=== PATIENT | male | born 1980 | race American Indian/Alaskan Native ===

== ENCOUNTER 2024-10-29 21:35 | Emergency (ER) | payer BC, SELFPAY ==
[2024-10-29 21:35] VITALS: BMI 31.6
[2024-10-29 21:54] VITALS: BP 157/97; PULSE 85; RESP 18; TEMP 37.2; O2SAT 97
[2024-10-29] MEDS: AMOXICILLIN/POT CLAV 875 TABLET 1 TAB PO (22:16)
[2024-10-29] MEDS: HYDROcodone/APAP 5/325 TABLET 1 TAB PO (22:16)
--- NOTE | 2024-10-29 23:48 | PD.EDEAR ---
ED Ear RME/HPI General Chief complaint: Ear Stated complaint: LEFT EAR PAIN, WITH BLOODY DISCHARGE Time Seen by Provider: 10/29/24 22:10 Arrival date/time: 10/29/24 21:35 44M with no significant PMH Presents to ED with several days of facial pain, sinus pressure, and L ear pain with some bloody discharge. Some reduced L hearing. Limitations: no limitations Related Data Previous Rx's ?Medication ?Instructions ?Recorded amoxicillin 875 mg-potassium 1 tab PO BID 7 days #14 tabs 10/29/24 clavulanate 125 mg tablet ofloxacin 0.3 % ear drops 5 drp otic (ear) BID 7 days #10 mL 10/29/24 Allergies Allergy/AdvReac Type Severity Reaction Status Date / Time No Known Allergies Allergy Verified 10/29/24 21:37 Review of Systems ENT Ears, Nose, Mouth, and Throat: Reports as per HPI, Reports otalgia, Reports facial pain and Reports sinus pressure Past Medical History Social History SMOKING STATUS: Never smoker ED Exam General Limitations: Present no limitations General appearance: Present alert and in no apparent distress Head Head exam: Present atraumatic Eye Eye exam: Present normal appearance, PERRL and EOMI ENT ENT exam: Present normal oropharynx and mucous membranes moist Expanded ENT Exam TM/Canal exam: Left TM: bulging, effusion and perforation Nose exam: Present sinus tenderness Neck Neck exam: Present normal inspection, full ROM and trachea midline Chest Chest inspection: Present normal inspection and symmetric chest wall rise Respiratory Respiratory exam: Present normal lung sounds bilaterally Cardiovascular Cardiovascular exam: Present regular rate, normal rhythm and normal heart sounds Abdominal Exam Abdominal exam: Present soft and normal bowel sounds Extremities Exam Extremities exam: Present normal inspection and full ROM Back Exam Back exam: Present normal inspection and full ROM Neurological Exam Neurological exam: Present alert, oriented X3 and CN II-XII intact Psychiatric Psychiatric exam: Present normal affect and normal mood Skin Skin exam: Present warm, dry, intact and normal color Course Quality Measures none Orders Category Date Time Status Amoxicillin/Pot Clav 875 [Augmentin 875] Med 10/29/24 22:10 Discontinued 1 tab PO X1 ONE HYDROcodone*/APAP 5/325 [[place] 5/325] Med 10/29/24 22:10 Discontinued 1 tab PO X1 ONE Vital Signs Vital signs: Vital Signs Temperature 98.9 F 10/29/24 21:54 Pulse Rate 85 10/29/24 21:54 Respiratory Rate 18 10/29/24 21:54 Blood Pressure 157/97 H 10/29/24 21:54 Pulse Oximetry (%) 97 10/29/24 21:54 Oxygen Delivery Method Room Air 10/29/24 21:54 O2 at 97% on RA and WNLs Ear MDM Narrative MDM Narrative:: 44M with no significant PMH Presents to ED with several days of facial pain, sinus pressure, and L ear pain with some bloody discharge. Some reduced L hearing. Physical exam reveals sinus tenderness. L yellow fluid behind L TM, which is slightly perforated. TM itself is not red. Some external canal discharge, but no tragal tenderness. Patient is afebrile, calm, and alert. Likely sinusitis leading to serous OM with perf. Will give topical and oral ABX. Patient data External records reviewed:: None Clinical information provided by:: patient Social determinants that could affect healthcare access:: none Patient has the following chronic illnesses:: none How is presenting disease/condition affected by chronic disease/condition?: no chronic disease Evaluation data The following diagnostics were reviewed and interpreted by me:: other (specify) (none) Lab and/or radiology exams considered but not ordered:: not ordered Interpretation Summary: n/a Medications / Prescriptions Medications or Prescriptions considered but not ordered:: ordered Medication administrations:: Medication Administration History Discontinued Medications Hydrocodone Bitart/Acetaminophen (Hydrocodone/Apap 5/325 Tablet) 1 tab PO X1 ONE Stop: 10/29/24 22:11 Last Admin: 10/29/24 22:16 Dose: 1 tab Documented By: ALMA Amoxicillin/Clavulanate Potassium (Amoxicillin/Pot Clav 875 Tablet) 1 tab PO X1 ONE Stop: 10/29/24 22:11 Last Admin: 10/29/24 22:16 Dose: 1 tab Documented By: OA above Consultations Consultation(s) initiated? (list below): No Diagnosis Ear Differential Diagnosis: otitis externa, otitis media (serous w/ perf), foreign body in ear, ruptured TM, cerumen impaction and other (sinusitis) Most likely diagnosis given after review of the tests above:: sinusitis and serous OM w/ perf Admission Indicated Admission indicated?: not indicated Admission Request Was there a request for admission?: No Disposition Plan Disposition Plan: Discharge Discharge Attestation Discharge Attestation: The patient and all family members were given an opportunity to ask questions and understood the discharge instructions. Discharge instructions specifically effects, indications for sooner follow up or return to the emergency department, and the expected course of current diagnosis. Patient condition: Stable Discharge Plan Plan Patient Disposition: HOME (Self Care) Disposition Comment: Stable Prescriptions/Referrals Prescriptions/Med Rec: New amoxicillin-pot clavulanate 875-125 mg tablet 1 tab PO BID 7 Days Qty: 14 0RF ofloxacin 0.3 % drops 5 drp otic (ear) BID 7 Days Qty: 10 0RF Problem List Clinical Impression: Sinusitis, Serous otitis media of left ear with rupture of tympanic membrane Patient/Caregiver Discharge Instructions Education Materials: ED Sinusitis (Antibiotic Treatment) Additional Instructions: Please follow-up with PCP within 24-48 hours and return immediately if symptoms worsen. Print Language: Macedonian Stand Alone Forms: Patient Portal Info Letter JADA/YOLIS Supervising Physician JADA/YOLIS Supervising Physician: Dr. Ascencio
== END 2024-10-29 22:27 | disposition home or self-care (01) ==
LOC: SERX 22:20
PROVIDERS: Emergency Provider Emergency Medicine
DX: H65.92 Unspecified nonsuppurative otitis media, left ear (principal); H72.92 Unspecified perforation of tympanic membrane, left ear; J32.9 Chronic sinusitis, unspecified
CPT/HCPCS: 99283; A9270